=== PATIENT | female | born 2000 | race Caucasian/White ===

== ENCOUNTER 2024-01-08 10:26 | Emergency (ER) | payer OTHER ==
[~2024-01-08] VITALS: Ht 167.6 cm; Wt 54.7 kg
[2024-01-08] MEDS ORDERED: IOPAMIDOL 370 MG/ML 100 ML INFUS..BTL INJ ONE (11:00)
[2024-01-08] MEDS: ENOXAPARIN SODIUM INJ 100 MG/ML SYR SC ONE (12:45)
[2024-01-08] MEDS ORDERED: NITROFURANTOIN MACROCRYSTALS 100 MG CAP PO ONE (15:15)
[2024-01-08] MEDS: NITROFURANTOIN 50 MG CAP PO ONE (17:01)
[2024-01-08 17:34] VITALS: PULSE 87; RESP 16; TEMP 98.3; O2SAT 100
== END 2024-01-08 18:00 | disposition other institution (70) ==
LOC: FSED 10:31
DX: M79.605 Pain in left leg (principal); I82.412 Acute embolism and thrombosis of left femoral vein; P25.2 Pneumomediastinum originating in the perinatal period; N39.0 Urinary tract infection, site not specified; B20 Human immunodeficiency virus [HIV] disease; R94.31 Abnormal electrocardiogram [ECG] [EKG]; F17.210 Nicotine dependence, cigarettes, uncomplicated
CPT/HCPCS: 71260; 80053; 80076; 81003; 81025; 82553; 84484; 85025; 93005; 93971; 96372; 99284; J1650; Q9967